=== PATIENT | male | born 1995 | race Two or more races ===

== ENCOUNTER 2018-03-21 08:29 | Emergency (ER) | payer SELFPAY ==
[~2018-03-21] VITALS: Ht 175.3 cm; Wt 82.0 kg
[2018-03-21] MEDS ORDERED: TETANUS, DIPHTHERIA, PERTUSSIS VAC/PF 0.5ML (>7YR OLD) IM ONE (09:30)
[2018-03-21] MEDS ORDERED: IBUPROFEN 600MG TABLET PO ONE (09:30)
[2018-03-21 09:37] VITALS: BP 139/86
[2018-03-21] MEDS ORDERED: BACITRACIN ZINC OINT UDPKT TOP ONE (11:30)
== END 2018-03-21 12:02 | disposition home or self-care (01) ==
LOC: ER 08:29
DX: S61.012A Laceration without foreign body of left thumb without damage to nail, initial encounter (principal); R03.0 Elevated blood-pressure reading, without diagnosis of hypertension; W45.8XXA Other foreign body or object entering through skin, initial encounter; Y93.89 Activity, other specified; Y92.89 Other specified places as the place of occurrence of the external cause; Y99.8 Other external cause status
CPT/HCPCS: 12001; 73130; 90471; 90715; 99283; Z7610

== ENCOUNTER 2018-03-23 09:52 | Emergency (ER) | payer SELFPAY ==
[~2018-03-23] VITALS: Ht 175.3 cm; Wt 86.0 kg
[2018-03-23 09:58] VITALS: BP 138/87
== END 2018-03-23 10:31 | disposition home or self-care (01) ==
LOC: ER 09:59
DX: S61.012D Laceration without foreign body of left thumb without damage to nail, subsequent encounter (principal); X58.XXXD Exposure to other specified factors, subsequent encounter
CPT/HCPCS: 99281